=== PATIENT | male | born 1985 | race Caucasian/White ===

== ENCOUNTER → 2018-11-22 13:21 | Emergency (ER) | payer BC ==
[~2018-11-22 13:21] MED LIST: Ketorolac INJ* 30 MG/ML 1 ML VIAL IM ONE; Ketorolac INJ* 30 MG/ML 1 ML VIAL ONE
--- NOTE | 2018-11-22 13:34 | ED ---
Lower Extremity - HPI Summary HPI Summary: This patient is a 32 year old M brought in by ambulance to [facility] with a chief complaint of left knee pain since 12:30. The patient notes the symptoms began after he landed when jumping playing basketball. The patient notes that his left kneecap was positioned higher than usual. The patient notes that he originally could not feel his left foot until EMS straightened his leg and his kneecap was repositioned. The patient rates the pain 5/10 in severity. Symptoms aggravated by movement. Symptoms alleviated by nothing. - History of Current Complaint Stated Complaint: LEFT KNEE INJURY PER PT Time Seen by Provider: 11/22/18 13:26 Hx Obtained From: Patient Onset of Pain: Minutes Onset/Duration: Still Present Severity Initially: Mild Severity Currently: Mild Timing: Constant Location: Is Discrete @ - left knee Associated Signs And Symptoms: Positive: Knee Pain - left Aggravating Factor(s): Movement Alleviating Factor(s): Nothing - Allergies/Home Medications Allergies/Adverse Reactions: Allergies Allergy/AdvReac Type Severity Reaction Status Date / Time No Known Allergies Allergy Verified 05/15/15 09:47 PMH/Surg Hx/FS Hx/Imm Hx Opthamlomology History: Denies: Hx Legally Blind EENT History: Denies: Hx Deafness Infectious Disease History: Denies: Traveled Outside the [place] in Last 30 Days - Family History Known Family History: Negative: Blood Disorder - Social History Alcohol Use: Occasionally Substance Use Type: Reports: None Smoking Status (MU): Current Every Day Smoker Review of Systems Negative: Fever Negative: Epistaxis Negative: Cough Negative: Vomiting Positive: Arthralgia - left knee pain All Other Systems Reviewed And Are Negative: Yes Physical Exam - Summary Physical Exam Summary: Appearance: The patient is well-nourished in no acute distress and in no acute pain. Skin: The skin is warm and dry and skin color reflects adequate perfusion. HEENT: The head is normocephalic and atraumatic. The pupils are equal and reactive. The conjunctivae are clear and without drainage. Nares are patent and without drainage. Mouth reveals moist mucous membranes and the throat is without erythema and exudate. The external ears are intact. The ear canals are patent and without drainage. The tympanic membranes are intact. Neck: The neck is supple with full range of motion and non-tender. There are no carotid bruits. There is no neck vein distension. Respiratory: Chest is non-tender. Lungs are clear to auscultation and breath sounds are symmetrical and equal. Cardiovascular: Heart is regular rate and rhythm. There is no murmur or rub auscultated. There is no peripheral edema and pulses are symmetrical and equal. Abdomen: The abdomen is soft and non-tender. There are normal bowel sounds heard in all four quadrants and there is no organomegaly palpated. Musculoskeletal: There is no back tenderness noted. There is good capillary refill. There is no peripheral edema or calf tenderness elicited. Unable to lift his left leg off the bed. Infrapatellar defect palpated Neurological: Patient is alert and oriented to person, place and time. The patient has symmetrical motor strength in all four extremities. Cranial nerves are grossly intact. Deep tendon reflexes are symmetrical and equal in all four extremities. Psychiatric: The patient has an appropriate affect and does not exhibit any anxiety or depression. Triage Information Reviewed: Yes Vital Signs Reviewed: Yes Diagnostics - Laboratory Lab Statement: Any lab studies that have been ordered have been reviewed, and results considered in the medical decision making process. - Radiology Left Knee XR Radiology Interpretation Completed By: Radiologist Summary of Radiographic Findings: IMPRESSION: No fracture of the left knee is noted. Question of infrapatellar tendon. injury. Soft tissue swelling is noted inferior to the patella. Dr. Hall has reviewed this report. Lower Extremity Course/Dx - Course Course Of Treatment: Mr. Mendoza has likely either partially or completely ruptured his infrapatellar tendon. His post in a knee immobilizer and crutches and recommended follow-up with orthopedics. He is given Dr. Montiel's name but they live about an hour away and he will try to get set up with an orthopedist in his hometown. - Diagnoses Provider Diagnoses: Patellar tendon rupture Discharge - Sign-Out/Discharge Documenting (check all that apply): Patient Departure - discharge home Patient Received Moderate/Deep Sedation with Procedure: No - Discharge Plan Condition: Stable Disposition: HOME Patient Education Materials: Knee Pain (ED), Tendon Rupture (ED) Referrals: Trent COELLO,Yumi Waggoner [Medical Doctor] - Rich Toure MD [Medical Doctor] - 1 Day Additional Instructions: Follow up with Dr. Toure, orthopedist, in 1-2 days. Return to the emergency with any new or worsening symptoms. - Billing Disposition and Condition Condition: STABLE Disposition: Home - Attestation Statements Document Initiated by Srini: Yes Documenting Scribe: Roberta Linton Provider For Whom Srini is Documenting (Include Credential): Titi Hall MD Scribe Attestation: Roberta Ojeda, scribed for Titi Hall MD on 11/22/18 at 1811. Scribe Documentation Reviewed: Yes Provider Attestation: The documentation as recorded by the scribe, Roberta Linton accurately reflects the service I personally performed and the decisions made by Titi griffiths MD Status of Scribe Document: Viewed
[2018-11-22 18:02] VITALS: BP 0/0
== END | disposition home or self-care (01) ==
LOC: ED 13:21
DX: S76.112A Strain of left quadriceps muscle, fascia and tendon, initial encounter (principal); X58.XXXA Exposure to other specified factors, initial encounter; Y93.67 Activity, basketball; F17.210 Nicotine dependence, cigarettes, uncomplicated
CPT/HCPCS: 96374; 99282; J1885